=== PATIENT | female | born 1955 | race Caucasian/White ===

== ENCOUNTER → 2023-12-17 09:26 | Outpatient (REF) | payer MEDICARE, SELFPAY | LOC: WDC 09:26 | PROVIDERS: ATTENDING PHYSICIAN Nurse Practitioner | DX: N63.20 Unspecified lump in the left breast, unspecified quadrant (principal); N63.23 Unspecified lump in the left breast, lower outer quadrant | CPT/HCPCS: 76642; 77062; 77066 ==

== ENCOUNTER → 2024-05-10 10:35 | Outpatient (REF) | payer MEDICARE, SELFPAY | LOC: HWRAD 10:35 | PROVIDERS: ATTENDING PHYSICIAN Nurse Practitioner; REFERRING PHYSICIAN Internal Medicine Gastroenterology | DX: R10.31 Right lower quadrant pain (principal) | CPT/HCPCS: 74178; 80053; 83690; 85025; 93005; Q9967 ==

== ENCOUNTER 2024-05-10 16:42 | Day surgery (SDC) | payer MEDICARE, SELFPAY ==
[2024-05-10] VITALS (7 sets, daily range): BP systolic 96–131; BP diastolic 58–96; BMI 23.3
--- NOTE | 2024-05-10 13:30 | EDRN ---
Lia Moulton in to see pt at this time
--- NOTE | 2024-05-10 13:32 | ED.GENMED ---
History of Present Illness
<Dede Moulton PA-C - Last Filed: 05/10/24 17:34>
General
Chief Complaint: Abdominal Pain
Source: patient
Exam Limitations: none
Time Seen by Provider: 05/10/24 13:11
Nursing documentation reviewed up to this point in time: agreed with
History of Present Illness
History of Present Illness:
Patient is a 68-year-old female presenting to the emergency department with right upper quadrant abdominal pain. Patient states that she has noticed discomfort intermittently in her right upper abdomen over the past year. Patient started to have
pain that she initially noticed in her right lower quadrant worse over this past week for which an outpatient CT scan was ordered by her PCP. Patient states that starting yesterday she had severe and constant pain in her right upper abdomen with
some radiation around to her back. She also endorses pretty consistent nausea but no vomiting. She was able to have CT scan performed outpatient this morning which showed evidence of gallbladder disease. Given her ongoing symptoms it was
recommended by her PCP that she come to the emergency department for evaluation.
At this time�patient reports a 'nagging 'pain in her right upper abdomen with some occasional radiation around to her right mid back. She endorses associated nausea and chills. She denies any vomiting, fever, diarrhea, constipation, or urinary
symptoms.
Of note�patient was treated for Lyme disease about a month ago with a 2-week course of doxycycline. Following the doxycycline she did have significant abdominal discomfort which she attributed at that time to the doxycycline.
Review of Systems
<Dede Moulton PA-C - Last Filed: 05/10/24 17:34>
Review of Systems
Allergies reviewed?: Yes
All Other Systems: ROS reviewed and negative except as documented in HPI and ROS
Phy Exam
<Dede Moulton PA-C - Last Filed: 05/10/24 17:34>
Physical Exam
Physical Exam:
Vitals: Patient's vital signs are stable. Afebrile
General: Patient is mildly uncomfortable appearing due to pain. Nontoxic
Skin: Warm and dry, no rashes or lesions
Head: Normocephalic, atraumatic
Eyes: Sclera nonicteric. EOMs intact. No nystagmus.
Throat: Protecting airway
Neck: Normal ROM, no cervical spine tenderness, no meningismus
Cardiac: Regular rate and rhythm, no murmurs.
Pulm: Normal respiratory effort, no wheezes, rales, rhonchi heard on exam.
Abdomen: Abdomen soft. Moderate tenderness right upper abdomen without rebound tenderness or guarding. Negative Cherry sign. No CVA tenderness
Extremities: No evidence of cyanosis or edema. Great distal pulses
Neuro: AAOx3. CN II-XII intact. No focal neurologic deficits.
Psychiatric: Normal affect.
Course
<Dede Moulton PA-C - Last Filed: 05/10/24 17:34>
Orders/Labs/Results
Orders:
Orders
05/10/24 Lunch
NPO
Allow oral meds: Yes
Allow clear liquids: No
05/10/24 13:32
0.9% Sodium Chloride 1000 ml [Nss] 1,000 ml IV BOLUS
Ketorolac [Toradol] 15 mg IV NOW STA
Ondansetron Injectable [Zofran] 4 mg IV NOW STA
05/10/24 13:33
Electrocardiogram (*1) Urgent
Reason for Study: Abdominal Pain
EKG- Treatment ONCE
05/10/24 13:43
Complete Blood Count/With Diff Urgent
Comprehensive Metabolic Panel Urgent
Lipase Urgent
05/10/24 14:08
Piperacillin/Tazo 3.375 Gram [Zosyn] 3.375 gram in 50 ml IV NOW
05/10/24 14:48
Admit/Transfer Patient As Directed
Co-Sign Provider:
Level of Care: Post Proc/Surg Recovery
Assign to:: Medical/Surgical
Physician / Group: Brendon Adams
Diagnosis: Acute calculous cholecystitis
Reason for Overnight Stay: Standard of Care
PRN Pain Medication Management As Directed
May give lesser potent ordered pain med per pt: Yes
preference::
Protocol:: Medication orders for pain may be administered in a
manner that supports deferring to patient preference
when the pt is:
- Requesting an ordered lesser potent pain medication.
Least to most potent pain medications are defined
as: acetaminophen < NSAID < tramadol < opioids
(morphine, oxycodone, hydromorphone).
- Requesting a lesser dose of the same medication IF
ORDERED.
- Requesting a less intrusive route of administration
if both routes are prescribed by the provider (PO <
IV).
05/10/24 14:49
Code Status As Directed
Resuscitation Status: Full Code
05/10/24 16:46
0.9% Sodium Chloride 1000 ml [Nss] 1,000 ml IV 80 mls/hr
Acetaminophen [Tylenol] 650 mg PO Q4HPRN PRN
HYDROmorphone [Dilaudid] 0.5 mg IV Q4HPRN PRN
HYDROmorphone [Dilaudid] 1 mg IV Q4HPRN PRN
Ondansetron Injectable [Zofran] 4 mg IV Q6HPRN PRN
05/10/24 16:46
Activity As Directed
Activity Level: Out of Bed-Early Mobility
Anti-embolism (AAMIR) Hose As Directed
Type: Thigh high
Intake/ Output As Directed
Frequency: Per unit guidelines
Pneumatic Compression Sleeves As Directed
Type: Knee high
Vital Signs As Directed
Frequency: Per unit guidelines
DX Deep Vein Thrombosis Video Routine
05/10/24 17:00
Flush (0.9% Sodium Chloride) [Flush (Nss)] See Dose Instructions IV PER PROTOCOL
05/10/24 17:32
DIETARY CONSULT Routine
Reason for Consult: weight loss
05/10/24 18:28
IRAD CONSULT Urgent
Consulting Provider: Fahad Kauffman
Was physician already notified: Yes
Reason for Consult/Procedure: Perc Cori
Acknowledgement that appropriate orders are entered: Yes
Wound Culture [Wound/Abscess/Other Culture] Routine
ANGIE Source: Gallbladder
Specimen Description:
05/10/24 20:00
Piperacillin/Tazo 3.375 Gram [Zosyn] 3.375 gram in 50 ml IV Q6H
05/11/24 06:00
Hepatitis C Antibody Routine
Abnormal Lab Results
05/10/24
13:43
WBC 14.1 H 10^3/uL
(4.8-10.8)
Abs Immat Gran (auto) 0.1 H 10^3/uL
(0-0.05)
Absolute Neuts (auto) 10.7 H 10^3/uL
(1.4-6.5)
Absolute Monos (auto) 1.0 H 10^3/uL
(0.1-0.6)
Neutrophils % 75.9 H %
(42.2-75.2)
Lymphocytes % 16.1 L %
(20.5-51.1)
Sodium 133 L mmol/L
(135-145)
Glucose 118 H mg/dl
(70-99)
05/10/24 13:43
05/10/24 13:43
Vital Signs
Initial and Last Documented VS:
Initial Vital Signs
Temp Pulse Resp BP Pulse Ox
98.5 F 81 18 125/79 99
05/10/24 12:24 05/10/24 12:24 05/10/24 12:24 05/10/24 12:24 05/10/24 12:24
Last Documented Vital Signs
Temp Pulse Resp BP Pulse Ox
98.2 F 72 16 115/64 99
05/10/24 17:03 05/10/24 17:03 05/10/24 17:03 05/10/24 17:03 05/10/24 17:03
<Otilio Peoples, - Last Filed: 05/10/24 19:46>
Orders/Labs/Results
Orders:
Orders
05/10/24 Lunch
NPO
Allow oral meds: Yes
Allow clear liquids: No
05/10/24 13:32
0.9% Sodium Chloride 1000 ml [Nss] 1,000 ml IV BOLUS
Ketorolac [Toradol] 15 mg IV NOW STA
Ondansetron Injectable [Zofran] 4 mg IV NOW STA
05/10/24 13:33
Electrocardiogram (*1) Urgent
Reason for Study: Abdominal Pain
EKG- Treatment ONCE
05/10/24 13:43
Complete Blood Count/With Diff Urgent
Comprehensive Metabolic Panel Urgent
Lipase Urgent
05/10/24 14:08
Piperacillin/Tazo 3.375 Gram [Zosyn] 3.375 gram in 50 ml IV NOW
05/10/24 14:48
Admit/Transfer Patient As Directed
Co-Sign Provider:
Level of Care: Post Proc/Surg Recovery
Assign to:: Medical/Surgical
Physician / Group: Brendon Adams
Diagnosis: Acute calculous cholecystitis
Reason for Overnight Stay: Standard of Care
PRN Pain Medication Management As Directed
May give lesser potent ordered pain med per pt: Yes
preference::
Protocol:: Medication orders for pain may be administered in a
manner that supports deferring to patient preference
when the pt is:
- Requesting an ordered lesser potent pain medication.
Least to most potent pain medications are defined
as: acetaminophen < NSAID < tramadol < opioids
(morphine, oxycodone, hydromorphone).
- Requesting a lesser dose of the same medication IF
ORDERED.
- Requesting a less intrusive route of administration
if both routes are prescribed by the provider (PO <
IV).
05/10/24 14:49
Code Status As Directed
Resuscitation Status: Full Code
05/10/24 16:46
0.9% Sodium Chloride 1000 ml [Nss] 1,000 ml IV 80 mls/hr
Acetaminophen [Tylenol] 650 mg PO Q4HPRN PRN
HYDROmorphone [Dilaudid] 0.5 mg IV Q4HPRN PRN
HYDROmorphone [Dilaudid] 1 mg IV Q4HPRN PRN
Ondansetron Injectable [Zofran] 4 mg IV Q6HPRN PRN
05/10/24 16:46
Activity As Directed
Activity Level: Out of Bed-Early Mobility
Anti-embolism (AAMIR) Hose As Directed
Type: Thigh high
Intake/ Output As Directed
Frequency: Per unit guidelines
Pneumatic Compression Sleeves As Directed
Type: Knee high
Vital Signs As Directed
Frequency: Per unit guidelines
DX Deep Vein Thrombosis Video Routine
05/10/24 17:00
Flush (0.9% Sodium Chloride) [Flush (Nss)] See Dose Instructions IV PER PROTOCOL
05/10/24 17:32
DIETARY CONSULT Routine
Reason for Consult: weight loss
05/10/24 18:28
IRAD CONSULT Urgent
Consulting Provider: Fahad Kauffman
Was physician already notified: Yes
Reason for Consult/Procedure: Perc Cori
Acknowledgement that appropriate orders are entered: Yes
Wound Culture [Wound/Abscess/Other Culture] Routine
ANGIE Source: Gallbladder
Specimen Description:
05/10/24 20:00
Piperacillin/Tazo 3.375 Gram [Zosyn] 3.375 gram in 50 ml IV Q6H
05/11/24 06:00
Hepatitis C Antibody Routine
Abnormal Lab Results
05/10/24
13:43
WBC 14.1 H 10^3/uL
(4.8-10.8)
Abs Immat Gran (auto) 0.1 H 10^3/uL
(0-0.05)
Absolute Neuts (auto) 10.7 H 10^3/uL
(1.4-6.5)
Absolute Monos (auto) 1.0 H 10^3/uL
(0.1-0.6)
Neutrophils % 75.9 H %
(42.2-75.2)
Lymphocytes % 16.1 L %
(20.5-51.1)
Sodium 133 L mmol/L
(135-145)
Glucose 118 H mg/dl
(70-99)
05/10/24 13:43
05/10/24 13:43
Vital Signs
Initial and Last Documented VS:
Initial Vital Signs
Temp Pulse Resp BP Pulse Ox
98.5 F 81 18 125/79 99
05/10/24 12:24 05/10/24 12:24 05/10/24 12:24 05/10/24 12:24 05/10/24 12:24
Last Documented Vital Signs
Temp Pulse Resp BP Pulse Ox
98.2 F 72 16 115/64 99
05/10/24 17:03 05/10/24 17:03 05/10/24 17:03 05/10/24 17:03 05/10/24 17:03
<Dede Moulton PA-C - Last Filed: 05/10/24 17:34>
MDM/Problems Addressed
Differential Diagnosis Includes:
Not limited to: Biliary colic, cholelithiasis, choledocholithiasis, cholecystitis, pancreatitis
MDM/Problems Addressed:
68-year-old female presenting with right upper quadrant abdominal pain and associated nausea worsening over the past few days. Had outpatient CT scan performed today which showed evidence of cholelithiasis with thickening of the gallbladder wall.
Sent to emergency department for further evaluation. Vital signs are stable�she is afebrile. Physical exam as above. Patient is nontoxic-appearing although mildly uncomfortable due to pain. She does have moderate right upper quadrant abdominal
tenderness without any rebound tenderness or guarding. Negative Cherry sign. Abdomen is soft throughout. Heart regular rate and rhythm. Lungs clear bilaterally. She is perfusing well. Labs were initiated which does show a leukocytosis of 14.1,
otherwise no clinically significant abnormalities. LFTs are normal. Lipase is normal. EKG was obtained which shows normal sinus rhythm without any acute ischemic changes. Findings consistent with acute cholecystitis given patient's CT findings
in conjunction with constant right upper quadrant pain and leukocytosis. Patient was given a dose of IV Toradol, Zofran, saline. Patient started on IV Zosyn in emergency department. Did discuss with general surgery, Dr. Adams who will plan for
OR tonight/tomorrow for cholecystectomy. Patient accepted to general surgery service. Patient seen with attending physician.
Chronic conditions affecting care:
N/A
Acute Exacerbation and/or Progression of Chronic Illness:
N/A
<Dede Moulton PA-C - Last Filed: 05/10/24 17:34>
*Pulse Oximetry
Patient hypoxic: no
*EKG
Interpreted by ED Provider?: Yes
EKG Intrepretation Date: 05/10/24
Interpretation: normal
Comparison EKG: no comparison EKG present
Heart Rate: 65
Rate: normal
Rhythm: sinus
[place]: normal axis
Interval: normal interval
QRS Pattern: normal QRS
Ischemia: no ischemia
*Operation Supervisor Interpretation
Rate: Operation Supervisor- N/A
*Critical Care Note
Total Time (30-74mins, 75-104mins- exclusive of procedures): Not Applicable
Data Reviewed
Review of Other/Old Records Reveals: Radiology Studies (CT scan performed outpatient today-cholelithiasis with gallbladder wall)
Source: previous radiology exam
<Dede Moulton PA-C - Last Filed: 05/10/24 17:34>
Patient Management
Discussion with other providers: Deployment Manager (General Surgery-Dr. Adams)
Escalation/DeEscalation of care consider admission/obs:
Admit to surgery for cholecystectomy. Plan for OR tonight/tomorrow
ED Attending Note
<Dede Moulton PA-C - Last Filed: 05/10/24 17:34>
-
Portions of this chart may have been created with voice recognition software.� Occasional wrong word or��sound alike� substitutions may have occurred due to the inherent limitations of voice recognition software.
<Otilio Peoples DO - Last Filed: 05/10/24 19:46>
ED Attending Note
Patient seen and examined by attending physician: Yes
I performed the substantive portion of visit, reviewed & personally made and approve the management plan that is documented in note by myself or OSMEL.: Yes
ED Attending Note:
68-year-old female with right upper quadrant pain CT shows suspicion for cholecystitis. No evidence of choledocholithiasis. Patient is stable and at rest feels that the pain is controlled. IV antibiotics and admit.
Discharge Plan
Departure
Patient Disposition: Admit
Date of Disposition: 05/10/24
Time of Disposition: 14:21
Presentation/result/management discussed w/ accepting MD/: Dr. Adams
Discharge Problem:
Acute cholecystitis
Interventions
Interventions:
*Risk Screen - Suicide Last Done: 05/10/24 12:24
*General Assessment Last Done: 05/10/24 12:24
*Neglect/Abuse Screening Last Done: 05/10/24 12:24
ED- Fall Risk Assessment Last Done: 05/10/24 13:36
*ED COVID-19 Vaccine History Last Done: 05/10/24 13:36
*Nursing Disposition Last Done: 05/10/24 16:18
NW-Aspdfi-Yugsojuxuw Assessment Last Done: 05/10/24 13:58
Discharge Date and Time
Discharge Date/Time: 05/10/24 16:18
[2024-05-10] MEDS: ZOFRAN 4 MG IV (13:52)
[2024-05-10] MEDS: NSS 1000 IV ×2 (13:52→17:45)
[2024-05-10 13:53] LABS: % Basophils 0.3 % (0-2); % Eosinophils 0.2 % (0-6); % Immature Granulocytes 0.4 % (0-0.5); % Lymphocytes 16.1 % (20.5-51.1); % Monocytes 7.1 % (1.7-9.3); % Neutrophils 75.9 % (42.2-75.2); Absolute Immature Granulocytes 0.1 10^3/uL (0-0.05); Absolute Lymphocytes 2.3 10^3/uL (1.2-3.4); Absolute Neutrophils 10.7 10^3/uL (1.4-6.5); Hematocrit 39.3 % (37.0-47.0); Hemoglobin 13.7 g/dL (12.0-16.0); Mean Corp Hgb Conc. 34.9 g/dL (33.0-37.0); Mean Corpuscular Hgb 29.7 pg (27.0-31.0); Mean Corpuscular Volume 85.1 fL (81.0-99.0); Mean Platelet Volume 9.6 fL (7.4-10.4); Nucleated Red Blood Cells % 0 %; Platelet Count 400 10^3/uL (130-400); Red Blood Cell Count 4.62 10^6/uL (4.20-5.40); Red Cell Dist. Width 12.9 % (11.5-14.5); White Blood Cell Count 14.1 10^3/uL (4.8-10.8)
[2024-05-10] MEDS: TORADOL 15 MG IV (13:53)
--- NOTE | 2024-05-10 14:05 | EDRN ---
Lia Moulton in to see pt and just left room now. Dr. Peoples in room w/ pt at this time.
[2024-05-10 14:06] LABS: ALT (SGPT) 28 U/L (0-35); AST (SGOT) 25 U/L (14-36); Albumin 4.3 g/dl (3.5-5.0); Alkaline Phosphatase 79 U/L (38-126); Blood Urea Nitrogen 11 mg/dl (7-17); Calcium 9.8 mg/dl (8.4-10.2); Carbon Dioxide 25 mmol/L (22-30); Chloride 98 mmol/L (98-107); Estimated Creatinine Clearance 68 ml/min; Glucose 118 mg/dl (70-99); Lipase 47 U/L (23-300); Potassium 3.8 mmol/L (3.5-5.1); Sodium 133 mmol/L (135-145); Total Bilirubin 1.1 mg/dl (0.2-1.3); Total Protein 6.6 g/dl (6.3-8.2); eGFR > 60.00
[2024-05-10] MEDS: ZOSYN 50 IV ×2 (14:32→21:23)
--- NOTE | 2024-05-10 14:34 | EDRN ---
Shayy CANSECO w/ surgery in room w/ pt (Dr. Brendon Adams).
--- NOTE | 2024-05-10 14:48 | HPS.HSE ---
Addendum entered and electronically signed by Brendon Adams MD 05/10/24 18:27:
I saw and examined the patient independently.
The Order Runner's note was reviewed and I agree with the note, assessment and plan except where noted below.
Comment: This is a 68-year-old female who presents with a 2-week history of postprandial right upper quadrant pain. Her CT scan demonstrates a severely thickened gallbladder with very large stone and significant pericholecystic fluid concerning for
acute cholecystitis.
N.p.o., IV fluids, IV antibiotics
I had a lengthy discussion with the patient about risk benefits and alternatives and I think she would be prohibitively high risk for surgery upfront. Therefore I recommended placement of a percutaneous cholecystostomy tube to decompress the
bladder with plan for interval cholecystectomy in 6 to 8 weeks.
All questions answered, patient agreeable to plan of care above.
Original Note:
Family Physician
-
Family Physician: Loreta MCCAULEY
Chief Complaint
-
abdominal pain
History of Present Illness
Ms Cheung is a 68 yo female with h/o knee arthroscopy and recent Lyme's disease treated with doxycycline who noted about 2 weeks ago she began having bloating and discomfort with eating. She had been having diarrhea while on doxycycline and began
eating more kefir and high fat yogurt to rebuild her gut microbiome. She noted she began having lower right abdominal pain in addition to the bloating after making these dietary changes which persisted. As the last week has gone on, she notes the
pain has migrated up towards the RUQ more. She followed up with her pcp and outpatient CT imaging ordered. Yesterday, a few hours after eating, she developed severe pain which has persisted since that time. She had outpatient CT done this am and
given her pain called her PCP for advice. She was directed to present to the ED which she did. She has received IV pain medication in the ED and is feeling a little better. She is tender to the RUQ on exam. She denies nausea or vomiting. She had a
fever at the time of diagnosis of lyme's disease a little over a month ago but none since.
Medical History
Past Medical History
Past Medical History: Reports GERD (hiatal hernia) and Other (h/o hepatitis, hsv2)
Past Surgical History: Reports Orthopedic (left knee arthroscopy) and Other (breast biopsy)
Social History
Tobacco: Former Smoker
Alcohol: None
Family History
Family History: Not pertinent
Allergies / Home Medications
Allergies reflects when Allergies were last updated in [employer]
Home Medications with original date entered in [employer]
Allergy/Medication List:
Patient Allergies
Allergy/AdvReac Type Severity Reaction Status Date / Time
No Known Allergies Allergy Verified 05/10/24 12:24
�Medication �Instructions �Recorded �Confirmed �Type
Lactobac no.2-Bifidobac no.1-S. 1 cap PO DAILY 05/10/24 05/10/24 History
thermo 112.5 billion cell capsule
(Visbiome)
hyoscyamine sulfate 0.125 mg tablet 0.125 mg PO BIDPRN PRN stomach 05/10/24 05/10/24 History
issues
Review of Systems
-
A 12 point ROS was completed and negative except as noted: Yes
Physical Exam
Vital Signs
Vital Signs
Temp Pulse Resp BP Pulse Ox
98.5 F 73 13 121/96 96
05/10/24 12:24 05/10/24 14:15 05/10/24 14:15 05/10/24 14:00 05/10/24 14:15
Physical Exam
General: Well Developed, Well Nourished and Comfortable
HEENT: NormoCephalic
Respiratory: Non Labored Respirations
GI: Soft, Non Distended and Tender (RUQ)
Skin: Warm and Dry
Psych: Calm
Laboratory Results
-
05/10/24 13:43
05/10/24 13:43
Laboratory Results
Total Bilirubin 1.1 mg/dl (0.2-1.3) 05/10/24 13:43
AST 25 U/L (14-36) 05/10/24 13:43
ALT 28 U/L (0-35) 05/10/24 13:43
Alkaline Phosphatase 79 U/L (38-126) 05/10/24 13:43
Lipase 47 U/L (23-300) 05/10/24 13:43
Data Reviewed
-
CT Scan: Image Personally Visualized and interpreted, Report Reviewed by me, Discussed with Physician, Discussed with Nurse and Discussed with Patient
Lab Data: Labs Reviewed by me, Discussed with Physician and Discussed with Patient
Old Records: Reviewed
Impression/Plan
-
IMPRESSION:
68 yo female with intermittent abdominal pain over the last 2 weeks. Yesterday with onset of severe RUQ pain. Underwent outpatient CT imaging today with IV and PO contrast with cholelithiasis present and distended gallbladder with wall thickening
noted consistent with ACC. She was advised to present to the ED for evaluation by her PCP. Afebrile but with leukocytosis present. LFT's wnl. Vital signs stable. Pain improved after analgesics in ED but still with RUQ tenderness.
PLAN:
Plan laparoscopic cholecystectomy today vs tomorrow pending OR availability
Keep NPO except meds
Continue IV Zosyn 3.375gm Q6h
Analgesics/Antiemetics prn
SCDs for VTE ppx
--- NOTE | 2024-05-10 15:09 | EDRN ---
Per Lia FREY pt is to go to OR later today or tomorrow.
[2024-05-10] MEDS: FLUSH (NSS) 1 FLUSH IV (17:46)
[2024-05-11] VITALS (12 sets, daily range): BP systolic 75–166; BP diastolic 61–87
[2024-05-11] MEDS: ZOSYN 50 IV ×4 (02:32→19:59)
[2024-05-11] MEDS: NSS 1000 IV ×2 (07:48→22:58)
[2024-05-11] MEDS: DILAUDID 0.5 MG IV ×2 (07:53→17:00)
[2024-05-11 08:37] LABS: INR 1.32; PT 16.2 Sec (11.4-14.6)
[2024-05-11 09:30] LABS: Hepatitis C Antibody Negative (Negative)
--- NOTE | 2024-05-11 09:47 | W.PN.GS2 ---
Today's Communication / Plan
-
-- Plan for IR cholecystostomy tube
Assessment / Plan
-
Patient is a 68 yo F p/w severe acute cholecystitis
Clinically stable. Low-grade fevers. Repeat labs pending.
-- Plan for IR cholecystostomy tube
-- NPO, IVF
-- Antibiotics: Zosyn
-- Pain control: Tylenol and IV Dilaudid PRN
Subjective Data
-
Date of Service: May 11, 2024
Continued RUQ abdominal pain. No nausea or vomiting. Low-grade fever.
Objective Data
-
Intake and Output
05/10/24 05/11/24 05/12/24
06:59 06:59 06:59
Other:
Number of approximated MODERATE 2
amounts of urine
Vital Signs
Temp Pulse Resp BP Pulse Ox
99.6 F 90 18 120/87 96
05/11/24 07:00 05/11/24 07:00 05/11/24 07:00 05/11/24 07:00 05/11/24 07:00
Calcium 9.8 mg/dl (8.4-10.2) 05/10/24 13:43
Total Bilirubin 1.1 mg/dl (0.2-1.3) 05/10/24 13:43
AST 25 U/L (14-36) 05/10/24 13:43
ALT 28 U/L (0-35) 05/10/24 13:43
Alkaline Phosphatase 79 U/L (38-126) 05/10/24 13:43
Total Protein 6.6 g/dl (6.3-8.2) 05/10/24 13:43
Albumin 4.3 g/dl (3.5-5.0) 05/10/24 13:43
Physical Exam
-
Gen: NAD, slightly diaphoretic
Abd: soft, tender to palpation in RUQ, ND, non-peritoneal
[2024-05-11 10:09] LABS: Hematocrit 37.2 % (37.0-47.0); Hemoglobin 12.5 g/dL (12.0-16.0); Mean Corp Hgb Conc. 33.6 g/dL (33.0-37.0); Mean Corpuscular Hgb 30.2 pg (27.0-31.0); Mean Corpuscular Volume 89.9 fL (81.0-99.0); Mean Platelet Volume 10.2 fL (7.4-10.4); Platelet Count 321 10^3/uL (130-400); Red Blood Cell Count 4.14 10^6/uL (4.20-5.40); Red Cell Dist. Width 13.2 % (11.5-14.5); White Blood Cell Count 11.4 10^3/uL (4.8-10.8)
[2024-05-11 10:39] LABS: ALT (SGPT) 52 U/L (0-35); AST (SGOT) 54 U/L (14-36); Albumin 3.4 g/dl (3.5-5.0); Alkaline Phosphatase 76 U/L (38-126); Blood Urea Nitrogen 13 mg/dl (7-17); Calcium 8.6 mg/dl (8.4-10.2); Carbon Dioxide 26 mmol/L (22-30); Chloride 103 mmol/L (98-107); Estimated Creatinine Clearance 64 ml/min; Glucose 98 mg/dl (70-99); Potassium 3.7 mmol/L (3.5-5.1); Sodium 137 mmol/L (135-145); Total Bilirubin 1.4 mg/dl (0.2-1.3); Total Protein 5.7 g/dl (6.3-8.2); eGFR > 60.00
[2024-05-11] MEDS: TYLENOL 650 MG PO ×2 (13:32→22:59)
--- NOTE | 2024-05-11 13:44 | PTCARENOTE ---
patient is expressing anxiety about upcoming procedure; requesting Ativan for her nerves. made aware; patient given emotional support at bedside
--- NOTE | 2024-05-11 14:24 | W.SUR.PREOP ---
Addendum entered and electronically signed by Brendon Adams MD 05/11/24 16:00:
Entered in error.
Original Note:
Pre-Operative Surgical Note
-
I have examined this patient prior to the performance of the scheduled procedure.
The patient's condition is unchanged from the time of the current History and
Physical and the patient is able to undergo the scheduled procedure.
[2024-05-11] MEDS: ATIVAN 0.5 MG IV (14:38)
--- NOTE | 2024-05-11 16:31 | W.PN.UPDATE ---
Update Note
Progress Note Update
Preprocedure US showed a dilated gallbladder with wall thickening and pericholecystic fluid. Placed 8 Fr percutaneous cholecystostomy, drained clearish cloudy fluid. Fluid sent for analysis.
Gentle contrast injection confirmed occlusion of cystic duct.
[2024-05-11] MEDS: NSS IV (17:12)
[2024-05-12] MEDS: ZOSYN 50 IV ×4 (01:05→20:32)
--- NOTE | 2024-05-12 03:15 | DOWNTIME ---
There was a [facility] Client Sales Demonstrator Downtime on 05/12/2024 from 0100 to 05/12/2024 at 0252. Downtime documentation of patient's care, including medication administrations, has been reconciled in the electronic record per guidelines. Refer to the
patient's paper chart under the miscellaneous tab to see printed paper medication records and downtime forms.
[2024-05-12 03:30] VITALS: BP 115/66
[2024-05-12 07:00] VITALS: BP 111/65
[2024-05-12] MEDS: NSS 1000 IV (07:49)
[2024-05-12 09:56] LABS: Hematocrit 33.1 % (37.0-47.0); Hemoglobin 11.3 g/dL (12.0-16.0); Mean Corp Hgb Conc. 34.1 g/dL (33.0-37.0); Mean Corpuscular Hgb 30.4 pg (27.0-31.0); Mean Platelet Volume 10.3 fL (7.4-10.4); Platelet Count 258 10^3/uL (130-400); Red Blood Cell Count 3.72 10^6/uL (4.20-5.40); Red Cell Dist. Width 13.2 % (11.5-14.5); White Blood Cell Count 9.8 10^3/uL (4.8-10.8)
[2024-05-12 10:22] LABS: ALT (SGPT) 88 U/L (0-35); AST (SGOT) 70 U/L (14-36); Alkaline Phosphatase 104 U/L (38-126); Blood Urea Nitrogen 12 mg/dl (7-17); Calcium 8.3 mg/dl (8.4-10.2); Carbon Dioxide 26 mmol/L (22-30); Chloride 103 mmol/L (98-107); Estimated Creatinine Clearance 74 ml/min; Glucose 113 mg/dl (70-99); Potassium 3.3 mmol/L (3.5-5.1); Sodium 132 mmol/L (135-145); Total Bilirubin 1.1 mg/dl (0.2-1.3); Total Protein 5.3 g/dl (6.3-8.2); eGFR > 60.00
--- NOTE | 2024-05-12 10:48 | W.PN.GS2 ---
Today's Communication / Plan
-
Cont IV abx, reg diet
Trend labs
Assessment / Plan
-
Patient is a 68 yo F p/w severe acute cholecystitis PPD1 s/p perc jacquelyn tube placement by IR
Clinically stable. WBC normalized, Tbili normalized, mild increase in other LFTs
-- Cont IR drain
-- Cont reg diet
-- Antibiotics: Cont Zosyn
-- Pain control: Tylenol, oxy and IV Dilaudid PRN
-- DVT ppx: lovenox + SCDs
Subjective Data
-
Date of Service: May 12, 2024
101.2F Tmax last night, feeling improved after drain placement, c/o ongoing soreness/discomfort to RUQ, denies n/v, hungry
Objective Data
-
Intake and Output
05/11/24 05/12/24 05/13/24
06:59 06:59 06:59
Intake Total 3540 / 3540
Output Total 50 / 50
Balance 3490 / 3490
Intake:
Oral fluids 1440 / 1440
IV fluids (Total) 2000 / 2000
IV piggybacks 100 / 100
Output:
Drain Output (Total) 50 / 50
Right Abdomen Placed in IR 50 / 50
Other:
Number of approximated MODERATE 2 4
amounts of urine
Vital Signs
Temp Pulse Resp BP Pulse Ox
98.9 F 73 18 111/65 98
05/12/24 07:00 05/12/24 07:00 05/12/24 07:00 05/12/24 07:00 05/12/24 07:00
Lab Results
05/12/24 08:54
05/12/24 08:54
Calcium 8.3 mg/dl (8.4-10.2) L 05/12/24 08:54
Total Bilirubin 1.1 mg/dl (0.2-1.3) 05/12/24 08:54
AST 70 U/L (14-36) H 05/12/24 08:54
ALT 88 U/L (0-35) H 05/12/24 08:54
Alkaline Phosphatase 104 U/L (38-126) 05/12/24 08:54
Total Protein 5.3 g/dl (6.3-8.2) L 05/12/24 08:54
Albumin 3.0 g/dl (3.5-5.0) L 05/12/24 08:54
Physical Exam
-
Gen: NAD
Abd: soft, mild ttp to epigastrium/RUQ, drain with scant ss/tena fluid
[2024-05-12 11:31] VITALS: BP 104/61
[2024-05-12 14:54] VITALS: BP 117/76
--- NOTE | 2024-05-12 14:59 | CM ---
CM reviewed chart, met with patient bedside, initial assessment completed. Patient resides in a multiple story home, denies use of DME, VN, or SNF. Patient reports she is very active with yoga and hiking. Patient PCP Taty Mercedes, pharmacy [facility] [place]. Patient reports she does not have prescription coverage, typically does not take any medications. Patient tearful as she had a hiking trip planned with friends, will be unable to go on trip. Patient feels as though she will not need VN upon
discharge. Patient remains IV antibiotics. CM will continue to follow for all discharge planning needs.
Plan; home no needs, watch for VN or home IV antibiotic needs.
[2024-05-12] MEDS: LOVENOX 40 MG SC (17:13)
[2024-05-12] MEDS: TYLENOL 650 MG PO (17:18)
[2024-05-12 19:59] VITALS: BP 123/72
[2024-05-12 23:26] VITALS: BP 123/73
[2024-05-13] MEDS: NSS 1000 IV (00:39)
[2024-05-13] MEDS: ROXICODONE 5 MG PO (00:39)
[2024-05-13] MEDS: ZOSYN 50 IV ×3 (03:32→13:03)
[2024-05-13 06:40] LABS: % Basophils 0.7 % (0-2); % Eosinophils 2.1 % (0-6); % Immature Granulocytes 0.4 % (0-0.5); % Lymphocytes 24.6 % (20.5-51.1); % Monocytes 9.1 % (1.7-9.3); % Neutrophils 63.1 % (42.2-75.2); Absolute Basophils 0.1 10^3/uL (0-0.2); Absolute Eosinophils 0.1 10^3/uL (0-0.7); Absolute Lymphocytes 1.7 10^3/uL (1.2-3.4); Absolute Monocytes 0.6 10^3/uL (0.1-0.6); Absolute Neutrophils 4.2 10^3/uL (1.4-6.5); Hematocrit 31.3 % (37.0-47.0); Hemoglobin 10.7 g/dL (12.0-16.0); Mean Corp Hgb Conc. 34.2 g/dL (33.0-37.0); Mean Corpuscular Hgb 30.5 pg (27.0-31.0); Mean Corpuscular Volume 89.2 fL (81.0-99.0); Mean Platelet Volume 10.2 fL (7.4-10.4); Nucleated Red Blood Cells % 0 %; Platelet Count 277 10^3/uL (130-400); Red Blood Cell Count 3.51 10^6/uL (4.20-5.40); Red Cell Dist. Width 13.2 % (11.5-14.5); White Blood Cell Count 6.7 10^3/uL (4.8-10.8)
[2024-05-13 07:00] VITALS: BP 116/68
[2024-05-13 07:02] LABS: Blood Urea Nitrogen 10 mg/dl (7-17); Calcium 8.5 mg/dl (8.4-10.2); Carbon Dioxide 27 mmol/L (22-30); Chloride 105 mmol/L (98-107); Estimated Creatinine Clearance 74 ml/min; Glucose 92 mg/dl (70-99); Potassium 3.7 mmol/L (3.5-5.1); Sodium 138 mmol/L (135-145); eGFR > 60.00
--- NOTE | 2024-05-13 09:04 | W.PN.GS2 ---
Addendum entered and electronically signed by Timothy Benítez MD 05/13/24 11:41:
Patient seen and examined with surgical first assistant earlier this a.m.
Symptoms of acute cholecystitis have resolved after percutaneous cholecystostomy tube placement
Tolerating regular/low-fat diet, no significant residual abdominal pain, no nausea or vomiting.
AFVSS
ABD: Soft, nondistended, minimal tenderness right side, no rebound rigidity or guarding.
IR drain to gravity bag drainage with bilious fluid. Nonpurulent.
IR cultures gram-negative bacilli species and sensitivities pending
White blood cell count normal, hemoglobin 10.7 -acute anemia likely secondary to acute illness and dilutional from IV fluids; no signs of blood loss or bleeding
BMP within normal limits today
Assessment/plan: 68-year-old female with subacute calculus cholecystitis managed by percutaneous cholecystostomy tube
Stable for discharge
An additional 7-day course of Augmentin on discharge
Flushes ordered for IR drain and IR drain counseling provided regarding its care and management.
Consult case management for assistance VN
DC home, outpatient follow-up with Dr. Adams
Original Note:
Today's Communication / Plan
-
d/c today with VN
Assessment / Plan
-
Patient is a 68 yo F p/w severe acute cholecystitis PPD#2 s/p perc jacquelyn tube placement by IR
Clinically stable.
- Cont IR drain
- Cont reg diet
- Antibiotics: Cont Zosyn; switch to po augmentin x7 days on d/c
- Pain control: Tylenol, oxy and IV Dilaudid PRN
- Okay to be discharged from surgical standpoint; drain to be maintained upon discharge
- DVT ppx: lovenox + SCDs
Time Spent
Total Time Spent with Patient (in minutes): 15
Subjective Data
-
Date of Service: May 13, 2024
Patient seen and examined. Reports ongoing improvement. Offers no complains.
Objective Data
-
Intake and Output
05/12/24 05/13/24 05/14/24
06:59 06:59 06:59
Intake Total 3540 / 3540 2280 / 2280
Output Total 50 / 50 135 / 135
Balance 3490 / 3490 2145 / 2145
Intake:
Oral fluids 1440 / 1440 1080 / 1080
IV fluids (Total) 1999 / 1999 1100 / 1100
IV piggybacks 100 / 100 100 / 100
Output:
Drain Output (Total) 50 / 50 135 / 135
Right Abdomen Placed in IR 50 / 50 135 / 135
Other:
Number of approximated MODERATE 4 2
amounts of urine
Vital Signs
Temp Pulse Resp BP Pulse Ox
98.3 F 78 18 116/68 97
05/13/24 07:00 05/13/24 07:00 05/13/24 07:00 05/13/24 07:00 05/13/24 07:00
Lab Results
05/13/24 06:16
05/13/24 06:16
Calcium 8.5 mg/dl (8.4-10.2) 05/13/24 06:16
Total Bilirubin 1.1 mg/dl (0.2-1.3) 05/12/24 08:54
AST 70 U/L (14-36) H 05/12/24 08:54
ALT 88 U/L (0-35) H 05/12/24 08:54
Alkaline Phosphatase 104 U/L (38-126) 05/12/24 08:54
Total Protein 5.3 g/dl (6.3-8.2) L 05/12/24 08:54
Albumin 3.0 g/dl (3.5-5.0) L 05/12/24 08:54
Physical Exam
-
General: No acute distress
Abdomen: Soft, mild tender points near the drain/tube site otherwise nontender, no distention. Drain in place
--- NOTE | 2024-05-13 09:45 | W.DS.TRANS ---
Addendum entered and electronically signed by GARRICK Winslow 05/14/24 10:04:
dictated #[id number]
Original Note:
DC Summary - Media Production Manager
-
Discharge Instructions:
Discharge Diagnosis/Procedures Acute calculus cholecystitis. Percutaneous
cholecystostomy tube placement
Diet As tolerated,Low Fat
Activity No strenuous activity
Additional Activity Routine daily activities are all okay as
tolerated.
Driving Restrictions As prior to admission
Bathing Restrictions OK to Shower
Other Services VN
Wound Care Okay to shower with drain in place. Change
gauze dressing at drain skin site after showers
and every few days as needed.
Instructions: How to Keep Track of Your Drainage
Stand-Alone Forms:
Changes to Home Medications: No
Discharge Medications:
DC Medications w/original date entered in [facility]
Lactobac no.2-Bifidobac no.1-S. thermo 112.5 billion cell capsule (Visbiome) 1 cap PO DAILY 05/10/24
hyoscyamine sulfate 0.125 mg tablet 0.125 mg PO BIDPRN PRN stomach issues 05/10/24
acetaminophen 500 mg tablet (Tylenol Extra Strength) 1,000 mg (2 x 500 mg) PO Q6HPRN PRN mild pain #1 tab 05/13/24
amoxicillin 875 mg-potassium clavulanate 125 mg tablet 1 tab PO Q12 antibiotic #14 tabs 05/13/24
ibuprofen 200 mg tablet 400 mg (2 x 200 mg) PO Q6HPRN PRN moderate pain #1 tab 05/13/24
oxycodone 5 mg tablet 5 mg PO Q4HPRN PRN breakthrough/severe pain #5 tabs 05/13/24
sodium chloride 0.9 % (flush) 10 ml intra-catheter DAILY #42 syringes 05/13/24
Home Medication Changes
Pending Results: No
--- NOTE | 2024-05-13 10:39 | CM ---
Addendum entered by Brandy Pérez 05/13/24 13:00:
Plan: Home with VN of [facility]

Original Note:
Patient for d/c home today.
Patient going home with percutaneous jacquelyn tube.
Referral placed for VN, await response.
Plan: home with VN when stable.
[2024-05-13 11:00] VITALS: BP 114/69
[2024-05-13] MEDS: NSS IV (15:20)
[2024-05-13 16:48] VITALS: BP 136/83
== END 2024-05-13 17:19 | disposition home or self-care (01) ==
LOC: SDS 16:42
PROVIDERS: Nurse Practitioner Family; Physician Assistant; Radiology Vascular & Interventional Radiology; Surgery; ATTENDING PHYSICIAN Surgery; CONSULT PHYSICIAN Radiology Diagnostic Radiology; EMERGENCY PHYSICIAN Emergency Medicine; FAMILY PHYSICIAN Internal Medicine
DX: K80.00 Calculus of gallbladder with acute cholecystitis without obstruction (principal)
CPT/HCPCS: 47490; 80048; 80053; 83690; 85025; 85027; 85610; 86803; 87015; 87070; 87077; 87186; 87205; 93005; 96361; 96365; 96375; 99152; 99153; 99284; C1729; C1769

== ENCOUNTER 2024-07-01 06:57 | Day surgery (SDC) | payer MEDICARE, SELFPAY ==
[2024-07-01] VITALS (12 sets, daily range): BP systolic 78–148; BP diastolic 54–115
[2024-07-01] MEDS: TYLENOL 1000 MG PO (12:40)
[2024-07-01] MEDS: NORMOSOL-R/PLASMALYTE-A 1000 IV (12:46)
--- NOTE | 2024-07-01 13:56 | W.SUR.PREOP ---
Pre-Operative Surgical Note
-
I have examined this patient prior to the performance of the scheduled procedure.
The patient's condition is unchanged from the time of the current History and
Physical and the patient is able to undergo the scheduled procedure.
--- NOTE | 2024-07-01 13:56 | HP.FOC2 ---
Focused History & Physical
Chief Complaint
HPI:
Chief Complaint: Percutaneous cholecystostomy tube
HPI / Indication for Planned Procedure:
This is a 68-year-old female who presented to our hospital with a 2-week course of right upper quadrant pain for which we placed a percutaneous cholecystostomy tube. She presents today for surgical removal of the drain along with her gallbladder.
Relevant Past Medical History: Other (Anxiety, depression)
Relevant Social History: Negative
Relevant Family History: Negative
Relevant Past Surgical History: Negative
Review of Systems
Review of Pertinent Systems: All Systems Negative
Medication
See Medication form for detailed medications: Yes
Medication List (including Herbals & OTC):
oxycodone 5 mg tablet 5 mg PO Q4HPRN PRN breakthrough/severe pain #5 tabs 05/13/24
Probiotic 1 cap PO DAILY 06/29/24
ascorbate calcium (vitamin C) 500 mg tablet 500 mg PO BID 06/29/24
calcium 500 mg (as carbonate)-vitamin D3 3.125 mcg (125 unit) tablet 1,000 tab PO BID 06/29/24
cholecalciferol (vitamin D3) 125 mcg (5,000 unit) tablet (Vitamin D3) 125 mcg PO DAILY 06/29/24
digestive enzymes 1 tab PO TID 06/29/24
Medications Reviewed: Yes
Allergies and Reactions
Patient has Allergies: No
Noted Allergies and Reactions:
Allergy/AdvReac Type Severity Reaction Status Date / Time
No Known Allergies Allergy Verified 07/01/24 12:29
Pertinent Physical Exam
All Other Systems: Negative
Head/Neck: Normal
Abdomen: Other (Percutaneous cholecystostomy tube.)
Diagnosis / Assessment
68-year-old female with history of acute cholecystitis status post percutaneous cholecystostomy tube.
Plan / Procedure
Laparoscopic cholecystectomy with cholangiogram and removal of percutaneous tube.
Anesthesia/Sedation to be done by Anesthesia Provider: Yes
--- NOTE | 2024-07-01 15:50 | W.IMMPOSTOP ---
Surgical Immed Post Op Note
-
Primary Surgeon: Brendon Adams MD
Assisting Surgeon: None
Pre-op Diagnosis: Acute cholecystitis, presence of a percutaneous cholecystostomy tube
Post-op Diagnosis: Same
Procedure Performed: Laparoscopic cholecystectomy with cholangiogram, removal of cholecystostomy tube
Anesthesia Type: General
Specimen / Cultures:
1. Gallbladder and contents
2. Cholecystostomy tube
Estimated Blood Loss: 7 cc
Complications: None
Operative Findings: Minimally inflamed gallbladder with percutaneous cholecystostomy tube through the fundus of the gallbladder. Some minimal adhesions of the anterior surface which were lysed with blunt dissection electrocautery. A critical view
of safety was obtained prior to a cholangiogram which demonstrated no distal filling defects and normal biliary anatomy. The duct was ligated with a clip followed by a 0 PDS Endoloop.
--- NOTE | 2024-07-01 15:52 | OR.RPT ---
Operative Report
Operative Report
Patient Name: Lyla Cheung
: 1955
Date of Operation: 07/01/2024
Preoperative Diagnosis: Acute cholecystitis, presence of cholecystostomy tube
Postoperative Diagnosis: Same
Procedure(s):
1. Laparoscopic Cholecystectomy with Cholangiogram
2. Removal of cholecystostomy tube
Surgeon(s):
Dr. Adams
Chandelier Maker(s):
TK Dennis
Anesthesia: General
Estimated Blood Loss: 7 cc
Urine Output: None
Drains/Lines/Implants: None
Specimens:
1. Gallbladder and contents
2. Cholecystostomy tube
HPI/Surgical Indications:
This is a 68-year-old female who presented to our hospital with 2-week history of postprandial right upper quadrant pain and tenderness found to have acute cholecystitis that was managed with a percutaneous cholecystostomy tube. After allowing for
several weeks of decompression and time for the inflammation to subside she was counseled on interval cholecystectomy and removal of her percutaneous drain. Risks/Benefits/Alternatives were discussed at length, and the patient agreed to proceed with
surgery.
Operative Findings: Minimally inflamed gallbladder with percutaneous cholecystostomy tube through the fundus of the gallbladder. Some minimal adhesions of the anterior surface which were lysed with blunt dissection electrocautery. A critical view
of safety was obtained prior to a cholangiogram which demonstrated no distal filling defects and normal biliary anatomy. The duct was ligated with a clip followed by a 0 PDS Endoloop.
Procedure Description:
The patient was brought to the Operating Room and placed in the supine position with one arm tucked. Following uneventful induction of general endotracheal anesthesia, an orogastric tube was placed. The abdomen was prepped and draped in the usual
sterile fashion. A timeout was performed confirming the procedure, consent, and that IV antibiotics were infused and sequential compression devices were confirmed to be on. The abdomen was entered using an infraumbilical open Jomar technique with a
12 mm trochar. Pneumoperitoneum to 15 mmHg pressure was obtained without difficulty and we confirmed that no injury had occurred during our entry. The patient was positioned in reverse Trendelenberg and rotated with the right side up slightly. Three
(3) 5mm trocars were then placed along the right subcostal margin. The cholecystostomy tube was divided outside the body and removed from the gallbladder intact before a locking grasping forceps was placed on the fundus of the gallbladder where it
was then retracted cephalad and to the right. Using appropriate grasping instruments, the peritoneum overlying the triangle of Calot was incised and extended superiorly on both the anterior and posterior gallbladder manzo. The infundibulum was
dissected off the cystic plate. The cystic triangle was dissected until a critical view of safety was achieved. The cystic artery was medialized, dissected and controlled with 2 proximal clips and 1 distal. The cystic duct/gallbladder junction in
turn was identified, dissected circumferentially and a clip was placed. A ductotomy was made and a cholangiocatheter on an Mandel clamp was inserted into the cystic duct. A C-arm was draped and brought into the field. An intra-operative cholangiogram
was performed and was noted to have:
No filling defects in the biliary tree
No significant biliary dilation
Brisk flow of contrast into the duodenum
Normal biliary anatomy
The catheter was then removed and the cystic duct was controlled with a clip followed by a 0 PDS Endoloop. After ensuring both the artery and duct were divided, the gallbladder was freed from the liver using electrocautery. There was some minimal
spillage of bile, but no spillage of stones. The gallbladder bed was inspected and excellent hemostasis was obtained. The gallbladder was extracted through the 12 mm trocar site using an endocatch bag. The abdomen was again irrigated and excellent
hemostasis was assured. All remaining trocars were then removed and the pneumoperitoneum was evacuated. The 12 mm trocar site was closed using 0 PDS suture. All trocar sites were closed at the skin level using 4-0 Monocryl followed by Dermabond.
Overall, the patient tolerated the procedure well and was taken to the Recovery Room postoperatively in stable condition.
I was the attending physician and performed the procedure with assistance from the PA above. The assistance of TK Dennis was required due to the complexity of the procedure. During the procedure Corina assisted with retraction, resection, and
closure of the wound. I was present for all portions of the case, excluding wound closure.
Brendon Adams MD
[2024-07-01] MEDS: DILAUDID 0.25 MG IV (16:30)
[2024-07-01] MEDS: MOTRIN 600 MG PO (17:47)
== END 2024-07-01 18:25 | disposition home or self-care (01) ==
LOC: SDS 06:57
PROVIDERS: ATTENDING PHYSICIAN Surgery
DX: K80.10 Calculus of gallbladder with chronic cholecystitis without obstruction (principal); Z96.89 Presence of other specified functional implants; Z45.89 Encounter for adjustment and management of other implanted devices
CPT/HCPCS: 47563; 88304; 74300; 76000; A4300